=== PATIENT | male | born 1955 | race Caucasian/White ===

== ENCOUNTER 2023-08-29 17:57 | Inpatient (IN) | payer MEDICARE ==
[~2023-08-29] VITALS: Ht 172.7 cm; Wt 70.3 kg
[2023-08-29] MEDS ORDERED: CLONIDINE HCL 0.1 MG TABLET PO PRN (18:30)
[2023-08-29] MEDS ORDERED: MAG HYDROX/AL HYDROX/SIMETH 30 ML UDC PO PRN (18:30)
[2023-08-29] MEDS ORDERED: MAGNESIUM HYDROXIDE 30 ML UDC PO PRN (18:30)
[2023-08-29] MEDS ORDERED: ACETAMINOPHEN 325 MG TABLET PO PRN (18:30)
[2023-08-29] MEDS ORDERED: LORAZEPAM 1 MG TABLET PO PRN ×2 (18:30)
[2023-08-29] MEDS ORDERED: LORAZEPAM 0.5 MG TABLET PO PRN (18:30)
[2023-08-29] MEDS ORDERED: AMLO5TAB4 PO (18:49)
[2023-08-29] MEDS ORDERED: ASPI-1169 PO (18:49)
[2023-08-29] MEDS ORDERED: PARO-144 PO (18:49)
[2023-08-29] MEDS ORDERED: ATOR80TA PO (18:49)
[2023-08-29] MEDS ORDERED: METO50TA16 PO (18:49)
[2023-08-29 19:11] LABS: BASOPHILS # (AUTO) 0.1 K/uL (0.0-0.2); BASOPHILS % (AUTO) 1.1 % (0.0-2.0); EOSINOPHILS # (AUTO) 0.4 K/uL (0.0-0.7); EOSINOPHILS % (AUTO) 5.2 % (0.0-6.0); HEMATOCRIT 44 % (39-51); HEMOGLOBIN 14.9 g/dL (13.5-17.5); LYMPHOCYTES # (AUTO) 2.1 K/uL (0.8-4.8); LYMPHOCYTES % (AUTO) 27.2 % (20.0-44.0); MEAN CORPUSCULAR HEMOGLOBIN 32 PG (26.0-33.0); MEAN CORPUSCULAR HGB CONC 34 g/dl (31.0-36.0); MEAN CORPUSCULAR VOLUME 95 fL (80-96); MONOCYTES % (AUTO) 13.1 % (2.0-12.0); NEUTROPHILS # (AUTO) 4.1 K/uL (1.8-8.9); NEUTROPHILS % (AUTO) 53.4 % (43.0-81.0); PLATELET COUNT (AUTO) 254 K/uL (150-450); RED BLOOD CELL COUNT(AUTO) 4.64 MIL/uL (4.5-6.0); RED CELL DISTRIBUTION WIDTH 14.2 % (11.5-15.0); WHITE BLOOD COUNT (AUTO) 7.7 K/uL (4.3-11.0)
[2023-08-29 19:12] LABS: CALCIUM, SERUM 9.2 mg/dL (8.5-10.1); CREATININE 0.9 mg/dL (0.6-1.3); POTASSIUM 3.8 mmol/L (3.5-5.1)
[2023-08-29 19:18] LABS: BILIRUBIN,DIRECT 0.2 mg/dL (0.0-0.2); BILIRUBIN,TOTAL 0.6 mg/dL (0.2-1.0); TOTAL PROTEIN, SERUM 8.2 g/dL (6.4-8.2)
[2023-08-29 20:00] VITALS: BP 136/85; TEMP 98; O2SAT 98
[2023-08-29] MEDS ORDERED: BLOOD SUGAR DIAGNOSTIC 1 EACH STRIP IN ONE (21:30)
[2023-08-30 07:59] LABS: ALBUMIN 3.3 g/dL (3.4-5.0); BILIRUBIN,TOTAL 0.6 mg/dL (0.2-1.0); CALCIUM, SERUM 9.2 mg/dL (8.5-10.1); CREATININE 0.7 mg/dL (0.6-1.3); POTASSIUM 3.8 mmol/L (3.5-5.1)
[2023-08-30 08:00] VITALS: BP 140/88; TEMP 98.4; O2SAT 97
[2023-08-30] MEDS: THIAMINE HCL 100 MG TABLET PO SCH (13:51)
[2023-08-30 16:00] VITALS: BP 152/97; TEMP 98.6; O2SAT 100
[2023-08-30 20:00] VITALS: BP 145/88; TEMP 98.6; O2SAT 99
[2023-08-30] MEDS: PAROXETINE HCL 20 MG TABLET PO SCH (21:10)
[2023-08-30] MEDS: ZOLPIDEM TARTRATE 5 MG TABLET PO PRN (21:33)
[2023-08-31 08:00] VITALS: BP 149/93; TEMP 98.6; O2SAT 98
[2023-08-31] MEDS: THIAMINE HCL 100 MG TABLET PO SCH (08:44)
[2023-08-31] MEDS: MULTIPLE VIT (LYCOPENE/FA/MV,CA,IRON,MIN/LUT)1 TAB PO SCH (08:44)
[2023-08-31 16:00] VITALS: BP 152/91; TEMP 98.4; O2SAT 97
[2023-08-31 20:00] VITALS: BP 154/90; TEMP 98.1; O2SAT 99
[2023-08-31] MEDS: PAROXETINE HCL 20 MG TABLET PO SCH (21:17)
[2023-08-31] MEDS: ZOLPIDEM TARTRATE 5 MG TABLET PO PRN (21:17)
[2023-09-01 08:00] VITALS: BP 155/89; TEMP 97.7; O2SAT 96
[2023-09-01] MEDS: MULTIPLE VIT (LYCOPENE/FA/MV,CA,IRON,MIN/LUT)1 TAB PO SCH (08:18)
[2023-09-01] MEDS: THIAMINE HCL 100 MG TABLET PO SCH (08:18)
[2023-09-01] MEDS ORDERED: LORAZEPAM 1 MG TABLET PO PRN (09:30)
[2023-09-01 16:00] VITALS: BP 155/93; TEMP 98; O2SAT 99
[2023-09-01 20:00] VITALS: BP 159/88; TEMP 97.6; O2SAT 98
[2023-09-01] MEDS: PAROXETINE HCL 20 MG TABLET PO SCH (21:07)
[2023-09-01] MEDS: ZOLPIDEM TARTRATE 5 MG TABLET PO PRN (21:08)
[2023-09-02 08:00] VITALS: BP 130/85; TEMP 97.7; O2SAT 98
[2023-09-02] MEDS: MULTIPLE VIT (LYCOPENE/FA/MV,CA,IRON,MIN/LUT)1 TAB PO SCH (08:27)
[2023-09-02] MEDS: THIAMINE HCL 100 MG TABLET PO SCH (08:27)
[2023-09-02 16:00] VITALS: BP 134/81; TEMP 98.8; O2SAT 98
[2023-09-02 20:05] VITALS: BP 140/83; TEMP 98.2; O2SAT 100
[2023-09-02] MEDS: ZOLPIDEM TARTRATE 5 MG TABLET PO PRN (21:05)
[2023-09-02] MEDS: PAROXETINE HCL 20 MG TABLET PO SCH (21:05)
[2023-09-03 08:00] VITALS: BP 140/81; TEMP 98.1; O2SAT 99
[2023-09-03] MEDS: THIAMINE HCL 100 MG TABLET PO SCH (08:27)
[2023-09-03] MEDS: MULTIPLE VIT (LYCOPENE/FA/MV,CA,IRON,MIN/LUT)1 TAB PO SCH (08:27)
[2023-09-03 16:00] VITALS: BP 153/87; TEMP 97.8; O2SAT 98
[2023-09-03 20:18] VITALS: BP 155/84; TEMP 98.4; O2SAT 100
[2023-09-03] MEDS: PAROXETINE HCL 20 MG TABLET PO SCH (21:01)
[2023-09-03] MEDS: ZOLPIDEM TARTRATE 5 MG TABLET PO PRN (21:01)
[2023-09-04 08:00] VITALS: BP 133/86; TEMP 98.6; O2SAT 98
[2023-09-04] MEDS: MULTIPLE VIT (LYCOPENE/FA/MV,CA,IRON,MIN/LUT)1 TAB PO SCH (08:15)
[2023-09-04] MEDS: THIAMINE HCL 100 MG TABLET PO SCH (08:15)
[2023-09-04 16:04] VITALS: BP 156/86; TEMP 97.5; O2SAT 99
[2023-09-04 20:00] VITALS: BP 136/80; TEMP 98; O2SAT 100
[2023-09-04] MEDS: ZOLPIDEM TARTRATE 5 MG TABLET PO PRN (21:14)
[2023-09-04] MEDS: PAROXETINE HCL 20 MG TABLET PO SCH (21:14)
[2023-09-05 08:00] VITALS: BP 146/90; TEMP 97.7; O2SAT 100
[2023-09-05] MEDS: MULTIPLE VIT (LYCOPENE/FA/MV,CA,IRON,MIN/LUT)1 TAB PO SCH (08:16)
[2023-09-05] MEDS: THIAMINE HCL 100 MG TABLET PO SCH (08:16)
== END 2023-09-05 11:15 | disposition home or self-care (01) | DRG 885 ==
LOC: GPS 17:57
PROVIDERS: ADMIT Psychiatry & Neurology Psychiatry; ATTEND Internal Medicine
DX: F33.2 Major depressive disorder, recurrent severe without psychotic features (principal); F23 Brief psychotic disorder; I10 Essential (primary) hypertension; F10.20 Alcohol dependence, uncomplicated; F41.9 Anxiety disorder, unspecified; Z20.822 Contact with and (suspected) exposure to COVID-19; Z73.6 Limitation of activities due to disability; M62.81 Muscle weakness (generalized); Z95.5 Presence of coronary angioplasty implant and graft; I25.10 Atherosclerotic heart disease of native coronary artery without angina pectoris; Z79.899 Other long term (current) drug therapy
CPT/HCPCS: 36415; 80048-TC; 80053-TC; 80061-TC; 80076-TC; 82962-TC; 85025-TC